=== PATIENT | female | born 1965 | race Caucasian/White ===

== ENCOUNTER 2016-06-28 16:30 | Emergency (ER) | payer OTHER | END 2016-06-28 18:31 | disposition home or self-care (01) | LOC: FER 16:30 | DX: T20.20XA Burn of second degree of head, face, and neck, unspecified site, initial encounter (principal); T31.0 Burns involving less than 10% of body surface; Z23 Encounter for immunization; X08.8XXA Exposure to other specified smoke, fire and flames, initial encounter | CPT/HCPCS: 90471; 90715 ==